=== PATIENT | male | born 1970 | race Caucasian/White ===

== ENCOUNTER 2018-05-26 20:05 | Emergency (ER) | payer MEDICAID ==
--- NOTE | 2018-05-26 20:36 | ER Document Report ---
Addendum entered and electronically signed by POLLY CLEMENT NP 05/27/18 10:11: ED Medical Screen (RME) - General Chief Complaint: Low Back Pain Stated Complaint: FALL Time Seen by Provider: 05/26/18 20:30 Primary Care Provider: TAMY SWAIN MD [Primary Care Provider] - Follow up as needed Mode of Arrival: Medic TRAVEL OUTSIDE OF THE [place] IN LAST 30 DAYS: No - Related Data Allergies/Adverse Reactions: No Known Allergies Allergy (Verified 05/26/18 21:29) Original Note: ED Medical Screen (RME) - General Mode of Arrival: Medic Information source: Patient TRAVEL OUTSIDE OF THE [place] IN LAST 30 DAYS: No - General Chief Complaint: Low Back Pain Stated Complaint: FALL Time Seen by Provider: 05/26/18 20:30 Primary Care Provider: TAMY SWAIN MD [Primary Care Provider] - Follow up as needed Notes: pt presents to the ED via EMS for c/o low back pain after falling down 2 steps landing on his low back, coccyx area. He reports hx of several back surgeries, drop right foot, which he tripped over and fell. Denies urinary/bowel incontinence. reports no change in LOC, did not become dizzy, reports he tripped over his foot and fell. reports he does not usually take pain medications. (POLLY CLEMENT) - Related Data Allergies/Adverse Reactions: No Known Allergies Allergy (Verified 05/26/18 21:29) Past Medical History - Past Medical History Cardiac Medical History: Reports: Hx Hypercholesterolemia, Hx Hypertension Endocrine Medical History: Reports: Hx Diabetes Mellitus Type 1, Hx Diabetes Mellitus Type 2 Renal/ Medical History: Denies: Hx Peritoneal Dialysis Past Surgical History: Reports: Hx Orthopedic Surgery - Vital signs Vitals: Temp Pulse BP Pulse Ox 97.8 F 81 125/77 96 05/26/18 20:15 05/26/18 20:15 05/26/18 20:15 05/26/18 20:15 Course - Re-evaluation Re-evalutation: 05/27/18 01:33 Have reevaluated the patient twice. He does have some recurrent pain in his back but is improving significantly with the medicine he has been given here. Four-chamber time he tries to stand he has a sharp pain that goes down his back into his leg and is unable to stand. He tries actually very hard and does show good effort to stand but is unable to do so. He does have an implantable device in his back. He says he has had MRIs in the past with this in place and it is MRI compatible. I informed him we should probably get an MRI in the morning if he still unable to stand on reevaluation in the morning. Patient is agreeable to this. (NILE SIMONS) - Vital Signs Vital signs: Temp Pulse Resp BP Pulse Ox 97.8 F 81 125/77 96 05/26/18 20:15 05/26/18 20:15 05/26/18 20:15 05/26/18 20:15 Doctor's Discharge - Discharge Referrals: TAMY SWAIN MD [Primary Care Provider] - Follow up as needed
[2018-05-26] MEDS ORDERED: OXYCODONE-ACETAMINOPHEN 5-325 MG TABLET PO ONE (20:37)
--- NOTE | 2018-05-26 22:04 | RADIOLOGY REPORT (SQ) ---
EXAM DESCRIPTION: CT LUMBAR SPINE WITHOUT IV CONTRAST COMPLETED DATE/TME: 05/26/2018 20:37 CLINICAL HISTORY: 48 years, Male, fall, low back coccyx pain COMPARISON: None. TECHNIQUE: 457 Images stored on PACS. All CT scanners at this facility use dose modulation, iterative reconstruction, and/or weight based dosing when appropriate to reduce radiation dose to as low as reasonably achievable (ALARA). [facility]: Dose Right [facility]: CareDose [facility]: Dose Right [facility]: Teradose 4D [facility]: ScoreFeeder LIMITATIONS: None. FINDINGS: 5 lumbar type vertebral bodies for the purposes of this exam. Vertebral body height and alignment is preserved. No evidence for fracture or subluxation. The coccyx was not included entirely in the exam however as visualized the sacrococcygeal joint is preserved. Sacroiliac joints are preserved. Limited evaluation of extra spinal anatomic structures shows partial visualization of stimulating wires projecting posteriorly at the L1 level. Postsurgical changes at the L3-4 level with laminectomy defects. T12-L1, L1-L2 levels are unremarkable. At L2-L3, there is moderate facet arthropathy bilaterally with diffuse disc bulging. Mild central canal stenosis and mild to moderate neural foraminal narrowing bilaterally. At L3-4, there is post surgical change with superimposed facet arthropathy and osteophytic spurring. Minor diffuse disc bulging. Moderate neural foraminal narrowing bilaterally with moderate central canal stenosis. At L4-5, there is moderate bilateral facet arthropathy, greater on the right. There is minor osteophytic spurring and diffuse disc bulging. At least moderate central canal stenosis and moderate right neural foraminal narrowing. At L5-S1, there is minor facet arthropathy bilaterally. No CT evidence for central canal stenosis or neural foraminal compromise. IMPRESSION: No CT evidence for acute osseous abnormality. Multilevel degenerative change and postsurgical change, as above. Varying degrees of neural foraminal compromise and central canal stenosis. Please see above for detailed discussion of each level TECHNICAL DOCUMENTATION: Quality ID # [id number]: Final reports with documentation of one or more dose reduction techniques (e.g., Automated exposure control, adjustment of the mA and/or kV according to patient size, use of iterative reconstruction technique) copyright 2010 [employer]- All Rights Reserved
[2018-05-26] MEDS ORDERED: HYDROMORPHONE HCL INJ/PF 2 MG/ML AMPULE IM ONE ×2 (22:16→23:50)
[2018-05-26] MEDS ORDERED: GABAPENTIN 300 MG CAPSULE PO ONE (23:50)
--- NOTE | 2018-05-27 06:27 | ER Document Report ---
ED General - General Mode of Arrival: Medic TRAVEL OUTSIDE OF THE [place] IN LAST 30 DAYS: No - General Chief Complaint: Low Back Pain Stated Complaint: FALL Time Seen by Provider: 05/26/18 20:30 Primary Care Provider: TAMY SWAIN MD [Primary Care Provider] - Follow up as needed Notes: Patient is a 48-year-old male with a history of previous back surgery who presents with complaint of pain in his lower back. Patient says that he has chronic back pain. He says usually takes gabapentin for nerve pain into his legs and takes ibuprofen and Tylenol for his back pain. He does have history of back surgery and also has a TENS unit in his back. He says that his surgery was in 2012. He says his TENS unit was placed around 2006. Denies any fevers. He said today he slipped down steps and landed onto his back. He says since then he has had severe pain in his back and has been unable to stand on his own. He does have chronic foot drop in the right leg which is unchanged. No weakness or numbness into the left leg however he says when he tries to stand he is unable to bear any weight and immediately has to sit back down. No loss of bowel control. No urinary retention. (NILE SIMONS) - Related Data Allergies/Adverse Reactions: No Known Allergies Allergy (Verified 05/26/18 21:29) Past Medical History - General Information source: Patient - Social History Smoking Status: Current Every Day Smoker Frequency of alcohol use: None Drug Abuse: None Family History: None, Reviewed & Not Pertinent Patient has suicidal ideation: No Patient has homicidal ideation: No - Past Medical History Cardiac Medical History: Reports: Hx Hypercholesterolemia, Hx Hypertension Endocrine Medical History: Reports: Hx Diabetes Mellitus Type 1, Hx Diabetes Mellitus Type 2 Renal/ Medical History: Denies: Hx Peritoneal Dialysis Past Surgical History: Reports: Hx Orthopedic Surgery Review of Systems - Review of Systems Notes: My Normal Review Basic REVIEW OF SYSTEMS: CONSTITUTIONAL : Denies fever, chills, or sweats. Denies recent illness. EENT: Denies eye, ear, throat, or mouth pain or symptoms. Denies nasal or sinus congestion. GASTROINTESTINAL: Denies abdominal pain. Denies nausea, vomiting, or diarrhea. Denies constipation. Last BM: GENITOURINARY: Denies difficulty urinating, painful urination, burning, frequency, or blood in urine. MUSCULOSKELETAL: Back pain SKIN: Denies rash or skin lesions. NEUROLOGICAL: Denies any new sensory or motor loss. ALL OTHER SYSTEMS REVIEWED AND NEGATIVE. (NILE SIMONS) Physical Exam - Vital signs Vitals: Temp Pulse BP Pulse Ox 97.8 F 81 125/77 96 05/26/18 20:15 05/26/18 20:15 05/26/18 20:15 05/26/18 20:15 - Notes Notes: General Appearance: Well nourished, alert, cooperative, no acute distress, no obvious discomfort. Vitals: reviewed, See vital signs table. Eyes: PERRL, EOMI, Conjuctiva clear Mouth: No decreasd moisture Abdomen: Normal BS, soft, No rigidity, No abdominal tenderness, No guarding, no rebound, no abdominal masses, no organomegaly Extremities: Patient has pain to palpation it is near the lumbosacral junction. He has significant pain with movement. She is unable to stand up and bear weight on his feet. When I try to help him stand he merely sits back down because as soon as he puts weight onto his legs he has severe pain into his back and is unable to hold himself up. He does not have any weakness or numbness into the leg. He has chronic foot drop in the right leg. Skin: warm, dry, appropriate color, no rash Neuro: speech clear, oriented x 3, normal affect, responds appropriately to questions. (NILE SIMONS) Course - Re-evaluation Re-evalutation: 05/27/18 06:25 am I have evaluated the patient multiple times tonight. Each time I try to get him to stand but he is unable to stand is every time he tries to bear weight he imme diately has pain shooting into his back and down his legs his legs give out and he is unable to bear any weight whatsoever. Due to this I do not feel the patient can go home at this time. I have arranged for an MRI this morning. He has no other signs of cauda equina syndrome and that he does not have loss of bowel control, urinary tension, no new weakness or numbness into the lower extremities. Patient does have what he says is a TENS unit his back. He says that he has had MRIs since this was placed. There is no other metal in his back. I have checked the patient out to Dr. Lozoya. He will wait for the results of the MRI and based on the MRI will determine whether not the patient to be admitted here has to be transferred. Dictation of this chart was performed using voice recognition software; therefore, there may be some unintended grammatical errors. (NILE SIMONS) 05/27/18 09:49 Patient was signed out to myself. Notify the MRI techs earlier this morning that they would be unable to perform the MRI is that the patient has no information about his TENS unit in his back. I discussed this with the patient. I did evaluate the patient patient has deep tendon reflexes preserved in the knee. No numbness no tingling sensation intact in the perineal region. Patient underwent a rectal examination with good rectal tone. No urinary retention no b owel or bladder incontinence. I explained to the patient we could offer possible admission here to the hospital for more likely hospitalist may require an MRI and if at that time the patient will need to be transferred for MRI at another facility. I explained to the patient the next closest facility would be in [place] that has neurosurgery availability. Patient stated that he did not want to be transferred and at this time would request to obtain a walker and states that he will go home. I will discharge the patient home with oral morphine for the next 5 days. Encouraged patient to follow-up with primary care physician. Patient states understanding of the limitations of his care here is that we did not obtain the MRI. (ASPEN LOZOYA) - Vital Signs Vital signs: Temp Pulse Resp BP Pulse Ox 97.4 F 70 18 113/68 98 05/27/18 09:12 05/27/18 09:12 05/27/18 09:12 05/27/18 09:12 05/27/18 09:12 - Laboratory Laboratory results interpreted by me: 05/27/18 02:49 POC Glucose 140 H Discharge - Discharge Clinical Impression: Back pain Qualifiers: Back pain location: low back pain Chronicity: unspecified Back pain laterality: midline Sciatica presence: with sciatica Sciatica laterality: sciatica of left side Qualified Code(s): M54.42 - Lumbago with sciatica, left side Instructions: Low Back Pain ([facility]), Warm Packs ([facility]), Oral Narcotic Medication ([facility]) Additional Instructions: We are unable to perform an MRI of her back today. I will send you home with a walker and pain medication. I will highly recommend to follow-up with your primary care physician take pain medications as prescribed along with anti- inflammatory medications and Tylenol. Return to the ER symptoms worsen. Prescriptions: Morphine Sulfate [Morphine Ir 15 Mg Tablet] 15 mg PO TID #16 tablet Referrals: TAMY SWAIN MD [Primary Care Provider] - Follow up as needed
[2018-05-27 09:13] VITALS: BP 113/68
[2018-05-27] MEDS ORDERED: MORPHINE SULFATE IR 15 MG TABLET PO ONE (09:42)
== END 2018-05-27 10:26 | disposition home or self-care (01) ==
LOC: ER 20:05
DX: M54.42 Lumbago with sciatica, left side (principal); G89.29 Other chronic pain; Z79.1 Long term (current) use of non-steroidal anti-inflammatories (NSAID); Z96.89 Presence of other specified functional implants; M21.371 Foot drop, right foot; R26.2 Difficulty in walking, not elsewhere classified; I10 Essential (primary) hypertension; E11.9 Type 2 diabetes mellitus without complications
CPT/HCPCS: 99284; 96372; 82962; 72131; J3490; J1170 ×2

== ENCOUNTER 2018-10-10 04:27 | Emergency (ER) | payer MEDICAID ==
[2018-10-10] MEDS ORDERED: ONDANSETRON 4 MG TAB.RAPDIS PO ONE (08:51)
[2018-10-10] MEDS ORDERED: MORPHINE SULFATE 10 MG/ML INJ IM ONE (08:51)
--- NOTE | 2018-10-10 09:48 | ER Document Report ---
Entered by CAMMY PÉREZ SCRIBE 10/10/18 0851 Acting as scribe for:JULIAN SERRANO MD ED Neck/Back Problem - General Chief Complaint: Back Pain Stated Complaint: BACK PAIN Time Seen by Provider: 10/10/18 08:35 Primary Care Provider: GINI ESCOBAR PA-C [Primary Care Provider] - Follow up as needed Mode of Arrival: Ambulatory Information source: Patient Notes: 48-year-old male who presents to the emergency department today with complaints of back pain that began this morning at 0300. Patient states he was rolling over to get out of bed to go to the bathroom when his pain began. Patient states he "felt something pop" in his back. Patient has chronic back pain with previous lower back surgery. Patient states it is difficult to walk secondary to pain but he is able to ambulate. TRAVEL OUTSIDE OF THE [place] IN LAST 30 DAYS: No - Related Data Allergies/Adverse Reactions: No Known Allergies Allergy (Verified 05/26/18 21:29) Past Medical History - General Information source: Patient - Social History Smoking Status: Current Every Day Smoker Cigarette use (# per day): Yes Family History: None, Reviewed & Not Pertinent - Past Medical History Cardiac Medical History: Reports: Hx Hypercholesterolemia, Hx Hypertension Endocrine Medical History: Reports: Hx Diabetes Mellitus Type 2 Past Surgical History: Reports: Hx Orthopedic Surgery Review of Systems - Review of Systems Constitutional: No symptoms reported EENT: No symptoms reported Cardiovascular: No symptoms reported Respiratory: No symptoms reported Gastrointestinal: No symptoms reported Genitourinary: No symptoms reported Male Genitourinary: No symptoms reported Musculoskeletal: See HPI, Back pain Skin: No symptoms reported Hematologic/Lymphatic: No symptoms reported Neurological/Psychological: No symptoms reported -: Yes All other systems reviewed and negative Physical Exam - Vital signs Vitals: Temp Pulse Resp BP Pulse Ox 98.8 F 90 16 115/76 95 10/10/18 04:53 10/10/18 04:53 10/10/18 04:53 10/10/18 04:53 10/10/18 04:53 - Notes Notes: Physical Exam: General: Alert, appears well. HEENT: Normocephalic. Atraumatic. PERRLA. Extraocular movements intact. Orophar ynx clear. Neck: Supple. Respiratory: No respiratory distress. Abdominal: Normal Inspection. No distension. Extremities: Moves all four extremities. Back: Tenderness with palpation over the left paralumbar musculature superior to the iliac crest. Neurological: Normal cognition. AAOx4. Normal speech. Psychological: Normal affect. Normal Mood. Skin: Warm. Dry. Normal color. Course - Vital Signs Vital signs: Temp Pulse Resp BP Pulse Ox 98.8 F 90 16 115/76 95 10/10/18 04:53 10/10/18 04:53 10/10/18 04:53 10/10/18 04:53 10/10/18 04:53 Discharge - Discharge Clinical Impression: Lumbar back sprain Qualifiers: Encounter type: initial encounter Qualified Code(s): S33.5XXA - Sprain of ligaments of lumbar spine, initial encounter Condition: Stable Disposition: HOME, SELF-CARE Additional Instructions: Low Back Pain Three out of every four people will have an episode of disabling back pain during their lifetime. Most commonly the pain is due to straining of the muscles and ligaments in the low back. Usual treatment includes: (1) Rest on a firm surface. Avoid lying on your stomach. (2) Ice pack the painful area. After a few days, gentle heat may be used intermittently to relax the area, or ice packs can be continued. (3) Medication may be needed -- muscle relaxers and antiinflammatory medicines are commonly used. (4) As the back improves, exercises are prescribed to strengthen the back and abdominal muscles. Your doctor will advise you on the proper care for your back at each stage in your recovery. You may be better in a few days -- or healing may take several weeks. If new symptoms of a "herniated disc" (radiation of pain, numbness, or tingling down the back of the leg or weakness in the leg) occur, you should be re-examined. Further testing may be necessary. Take the Flexeril you have left over from previous back pain episode. Use ice packs to the painful area today. Continue your regular medications. Follow-up with your doctor this week if not improving. RETURN TO THE EMERGENCY ROOM IF ANY NEW OR WORSENING SYMPTOMS. Referrals: GINI ESCOBAR PA-C [Primary Care Provider] - Follow up as needed Jamesibsatish Attestation: 10/10/18 08:59 I personally performed the services described in the documentation, reviewed and edited the documentation which was dictated to the scribe in my presence, and it accurately records my words and actions. I personally performed the services described in the documentation, reviewed and edited the documentation which was dictated to the scribe in my presence, and it accurately records my words and actions.
[2018-10-10 11:32] VITALS: BP 133/94
== END 2018-10-10 11:40 | disposition home or self-care (01) ==
LOC: ER 04:27
DX: S33.5XXA Sprain of ligaments of lumbar spine, initial encounter (principal); M54.9 Dorsalgia, unspecified; G89.29 Other chronic pain; X50.1XXA Overexertion from prolonged static or awkward postures, initial encounter; F17.210 Nicotine dependence, cigarettes, uncomplicated; I10 Essential (primary) hypertension; E11.9 Type 2 diabetes mellitus without complications
CPT/HCPCS: 99283; 96374; S0119; J2270

== ENCOUNTER 2019-03-08 10:42 | Day surgery (SDC) | payer MEDICAID ==
[2019-02-28 10:13] LABS: HEMATOCRIT 51.3 % (37.9-51.0); HEMOGLOBIN 17.7 g/dL (13.5-17.0); MEAN CORPUSCULAR HEMOGLOBIN 30.8 pg (27.0-33.4); MEAN CORPUSCULAR HGB CONC 34.6 g/dL (32.0-36.0); MEAN CORPUSCULAR VOLUME 89 fl (80-97); PLATELET COUNT 187 10^3/uL (150-450); RED BLOOD COUNT 5.76 10^6/uL (4.35-5.55); WHITE BLOOD COUNT 10.7 10^3/uL (4.0-10.5)
[2019-02-28 10:15] LABS: APPEARANCE,URINE CLEAR; BILIRUBIN,URINE NEGATIVE (NEGATIVE); COLOR,URINE YELLOW; GLUCOSE, URINE NEGATIVE (NEGATIVE); KETONES,URINE NEGATIVE (NEGATIVE); LEUKOCYTE ESTERASE,URINE NEGATIVE (NEGATIVE); NITRITE,URINE NEGATIVE (NEGATIVE); PROTEIN,URINE NEGATIVE (NEGATIVE); URINE SPECIFIC GRAVITY 1.018; UROBILINOGEN,URINE NEGATIVE mg/dL (<2.0)
[2019-02-28 10:19] LABS: INTERNATIONAL RATION (INR) 1.06; PROTHROMBIN TIME 13.8 SEC (11.4-15.4)
--- NOTE | 2019-02-28 10:42 | RADIOLOGY REPORT (SQ) ---
EXAM DESCRIPTION: CHEST PA/LATERAL COMPLETED DATE/TIME: 02/28/2019 10:09 am REASON FOR STUDY: PRE-OP COMPARISON: 10/24/2015. EXAM PARAMETERS: NUMBER OF VIEWS: two views TECHNIQUE: Digital Frontal and Lateral radiographic views of the chest acquired. RADIATION DOSE: NA LIMITATIONS: none FINDINGS: LUNGS AND PLEURA: No opacities, masses or pneumothorax. No pleural effusion. MEDIASTINUM AND HILAR STRUCTURES: No masses or contour abnormalities. HEART AND VASCULAR STRUCTURES: Heart normal size. No evidence for failure. BONES: No acute findings. HARDWARE: Spinal stimulator electrodes. OTHER: No other significant finding. IMPRESSION: NO SIGNIFICANT RADIOGRAPHIC FINDING IN THE CHEST. TECHNICAL DOCUMENTATION: JOB ID: [id number] [employer]- All Rights Reserved Reading location - IP/workstation name: [email or web address]
--- NOTE | 2019-02-28 23:43 | EKG REPORT ---
SEVERITY:- NORMAL ECG - SINUS RHYTHM : Confirmed by: Ramírez Renee 28-Feb-2019 23:42:42
[~2019-03-08 10:42] MED LIST: CEFAZOLIN SODIUM 1 GM in DEXTROSE 5%-WATER 50 ML IV PRN; FENTANYL CITRATE INJ/PF 100 MCG/2 ML AMPUL ONE; MIDAZOLAM 2 MG/2 ML INJ ONE; PROPOFOL INJ 200 MG/20 ML VIAL IV ONE
[2019-03-08 11:53] LABS: POTASSIUM 4.4 mmol/L (3.6-5.0)
[2019-03-08] MEDS ORDERED: LIDOCAINE 1% INJ-PF (10 MG/ML) 30 ML SDV ONE (12:26)
[2019-03-08] MEDS ORDERED: SODIUM BICARBONATE 8.4% INJ 50 MEQ/50 ML DISP.SYRIN ONE (12:26)
[2019-03-08] MEDS ORDERED: MORPHINE SULFATE 10 MG/ML INJ IV PRN (12:58)
[2019-03-08] MEDS ORDERED: ONDANSETRON HCL INJ/PF 4 MG/2 ML SDV IV PRN (12:58)
[2019-03-08] MEDS ORDERED: FENTANYL CITRATE INJ/PF 100 MCG/2 ML AMPUL IV PRN ×3 (12:58)
[2019-03-08] MEDS ORDERED: DIPHENHYDRAMINE HCL 50 MG/ML VIAL IV PRN (12:58)
[2019-03-08] MEDS ORDERED: MEPERIDINE HCL/PF INJ 25 MG/1 ML DISP.SYRIN IV PRN (12:58)
[2019-03-08] MEDS ORDERED: PROMETHAZINE HCL INJ 25 MG/1 ML VIAL IV PRN ×2 (12:58)
[2019-03-08] MEDS ORDERED: BUPIVACAINE HCL 0.5 % INJ/PF 30 ML SDV ONE (13:03)
[2019-03-08] MEDS ORDERED: EPINEPHRINE INJ/PF 1 MG/1 ML AMPULE ONE (13:03)
--- NOTE | 2019-03-08 14:06 | Operative Report ---
Operative Report DATE OF SURGERY: 03/08/19 PREOPERATIVE DIAGNOSIS: end of life spinal cord stimulator pulse generator bowen medeiros POSTOPERATIVE DIAGNOSIS: Same OPERATION: Removal and replacement of spinal cord stimulator pulse generator and evaluation of lead system for integrity of fluoroscopy complex programming of spinal cord stimulator pulse generator SURGEON: SARIAH LOPES ANESTHESIA: LMAC TISSUE REMOVED OR ALTERED: none COMPLICATIONS: none ESTIMATED BLOOD LOSS: 5ml INTRAOPERATIVE FINDINGS: depleted battery PROCEDURE: Obtaining informed consent patient was taken to the operating room and placed comfortably in the prone position. Back anesthesia was administered the patient was then prepped and draped in usual fashion with chlorhexidine. Drying time was allowed prior to draping the battery and lead system was not evaluated on fluoroscopy to identify location of the leads and the relationship to the battery they were satisfactory decision was made to anesthetize skin with 1% lidocaine with bicarb when this was effective sharp dissection was performed down to the pulse generator care was taken not to interrupt or disturb the leads themselves the generator was readily identified and removed from the pocket without difficulty. Leads with disc connect disconnected from the pulse generator without difficulty to be noted that the heck notes were not secured at this time the remainder of the pocket was then anesthetized with 1% lidocaine with bicarb to allow an incision of this to expand the pocket slightly to facilitate easier placement of the new battery stasis was obtained with electrocautery as necessary. Leads were cleaned connector sites and inserted into the new pulse generator without difficulty. Appearances were satisfactory connectivity was satisfactory the hex nuts were secured pulse generator pocket was then copiously irrigated with Betadine containing irrigation solution. The pulse generator was then placed into the pocket with a labral link facing the skin lead remaining lead was coiled behind the pulse generator pocket capsule was closed with a running 2-0 Polysorb using an interlocking technique. The next layer was then closed with inverted vertical mattress sutures using 3-0 Polysorb the skin edges came nicely together the pocket was then instilled with quarter percent bupivacaine with epinephrine. Dermabond tape was then applied and Dermabond cement was applied. This was allowed to dry then alpha and sponge Tegaderm dressings were placed over this. Patient was then taken to the PACU for further postoperative care and monitoring.
--- NOTE | 2019-03-08 15:23 | RADIOLOGY REPORT (SQ) ---
EXAM DESCRIPTION: L SPINE 2 VIEWS; NO CHG FLUORO COMPLETED DATE/TIME: 03/08/2019 3:14 pm REASON FOR STUDY: SPINAL STIMULATOR BATTERY EXCHANGE ASST WITH FLUORO IN OR G89.4 CHRONIC PAIN SYND JESSENIA M96.1 POSTLAMINECTOMY SYNDROME, NOT ELSEWHERE CLASSIFIED M54.16 RADICULOPATHY, LUMBAR REGION COMPARISON: None. FLUOROSCOPY TIME: 0.2 minutes Spot images saved to PACS. TECHNIQUE: Intra-operative images acquired during surgical procedure to evaluate progress. NUMBER OF IMAGES: 6 LIMITATIONS: None. FINDINGS: Fluoroscopy was provided for intraoperative procedure. Please refer to the operative repo rt for further discussion. IMPRESSION: IMAGE(S) OBTAINED DURING PROCEDURE. COMMENT: Quality ID [id number]: Final reports for procedures using fluoroscopy that document radiation exp osure indices, or exposure time and number of fluorographic images (if radiation exposure indices are not available) Please consult full operative report of the attending physician for description of the procedure. TECHNICAL DOCUMENTATION: JOB ID: [id number] [employer]- All Rights Reserved Reading location - IP/workstation name: [email or web address]
--- NOTE | 2019-03-08 15:23 | RADIOLOGY REPORT (SQ) ---
EXAM DESCRIPTION: L SPINE 2 VIEWS; NO CHG FLUORO COMPLETED DATE/TIME: 03/08/2019 3:14 pm REASON FOR STUDY: SPINAL STIMULATOR BATTERY EXCHANGE ASST WITH FLUORO IN OR G89.4 CHRONIC PAIN SYND JESSENIA M96.1 POSTLAMINECTOMY SYNDROME, NOT ELSEWHERE CLASSIFIED M54.16 RADICULOPATHY, LUMBAR REGION COMPARISON: None. FLUOROSCOPY TIME: 0.2 minutes Spot images saved to PACS. TECHNIQUE: Intra-operative images acquired during surgical procedure to evaluate progress. NUMBER OF IMAGES: 6 LIMITATIONS: None. FINDINGS: Fluoroscopy was provided for intraoperative procedure. Please refer to the operative repo rt for further discussion. IMPRESSION: IMAGE(S) OBTAINED DURING PROCEDURE. COMMENT: Quality ID [id number]: Final reports for procedures using fluoroscopy that document radiation exp osure indices, or exposure time and number of fluorographic images (if radiation exposure indices are not available) Please consult full operative report of the attending physician for description of the procedure. TECHNICAL DOCUMENTATION: JOB ID: [id number] [employer]- All Rights Reserved Reading location - IP/workstation name: [email or web address]
[2019-03-08 17:25] VITALS: BP 139/100
== END 2019-03-08 16:00 | disposition home or self-care (01) ==
LOC: OROUT 10:42
PROVIDERS: ATTEND Pain Medicine Interventional Pain Medicine
DX: Z45.49 Encounter for adjustment and management of other implanted nervous system device (principal); G89.4 Chronic pain syndrome; M96.1 Postlaminectomy syndrome, not elsewhere classified; M54.16 Radiculopathy, lumbar region; M54.5 Low back pain; M51.36 Other intervertebral disc degeneration, lumbar region; M32.9 Systemic lupus erythematosus, unspecified; F17.210 Nicotine dependence, cigarettes, uncomplicated; I10 Essential (primary) hypertension; E78.5 Hyperlipidemia, unspecified; E11.9 Type 2 diabetes mellitus without complications; Z79.891 Long term (current) use of opiate analgesic; Z79.84 Long term (current) use of oral hypoglycemic drugs; Z79.4 Long term (current) use of insulin; Z79.01 Long term (current) use of anticoagulants; J45.909 Unspecified asthma, uncomplicated; Z79.51 Long term (current) use of inhaled steroids; Z86.718 Personal history of other venous thrombosis and embolism
CPT/HCPCS: 93005; 36415 ×2; 82947; 84132; 85027; 85610; 85730; 81001; 71046; 72100; 93010; 00300; 63685; C1767; J2250; J3490 ×3; J0690; J0171; J3010; J7060; J2704; 300

== ENCOUNTER 2019-03-09 06:59 | Emergency (ER) | payer MEDICAID ==
[2019-03-09 09:37] LABS: APPEARANCE,URINE CLEAR; BILIRUBIN,URINE NEGATIVE (NEGATIVE); COLOR,URINE YELLOW; GLUCOSE, URINE >=500 mg/dL (NEGATIVE); KETONES,URINE NEGATIVE (NEGATIVE); LEUKOCYTE ESTERASE,URINE NEGATIVE (NEGATIVE); NITRITE,URINE NEGATIVE (NEGATIVE); PROTEIN,URINE NEGATIVE (NEGATIVE); URINE SPECIFIC GRAVITY 1.025; UROBILINOGEN,URINE NEGATIVE mg/dL (<2.0)
[2019-03-09] MEDS ORDERED: HYDROMORPHONE HCL INJ/PF 2 MG/ML AMPULE IM ONE (10:16)
--- NOTE | 2019-03-09 10:17 | ER Document Report ---
HPI - HPI Patient complains to provider of: Low back pain Time Seen by Provider: 03/09/19 08:28 Onset: Yesterday Onset/Duration: Gradual, Worse Quality of pain: Sharp Pain Level: 5 Context: Patient presents complaining of lower back pain at the site of his surgical incision. Patient had surgery yesterday to remove and replace a spinal cord stimulator battery. Patient states that he was given pain medication at home although states that he took 2 tablets without any relief of his symptoms. Patient states he has been having difficulty in position changes but is able to get upright and move. Patient denies any radiculopathy. Patient denies any fever. Patient does report a history of chronic foot drop due to his back issues. Patient denies any new neurologic deficits. Patient states that he feels as though he is having incisional pain. Associated Symptoms: denies: Fever, Headache, Shortness of breath, Weakness Exacerbated by: Movement Relieved by: Denies Similar symptoms previously: Yes Recently seen / treated by doctor: Yes - ROS ROS below otherwise negative: Yes Systems Reviewed and Negative: Yes All other systems reviewed and negative - CONSTITUTIONAL Constitutional: DENIES: Fever, Chills - NEURO Neurology: DENIES: Weakness - GASTROINTESTINAL Gastrointestinal: DENIES: Nausea - MUSCULOSKELETAL Musculoskeletal: REPORTS: Back Pain - DERM Skin Color: Normal Skin Problems: None Past Medical History - General Information source: Patient - Social History Smoking Status: Current Every Day Smoker Frequency of alcohol use: None Drug Abuse: None Occupation: None Lives with: Family Family History: None, Reviewed & Not Pertinent Patient has suicidal ideation: No Patient has homicidal ideation: No - Past Medical History Cardiac Medical History: Reports: Hx Hypercholesterolemia, Hx Hypertension Pulmonary Medical History: Reports: Hx Asthma - MILD Endocrine Medical History: Reports: Hx Diabetes Mellitus Type 1, Hx Diabetes Mellitus Type 2 Renal/ Medical History: Denies: Hx Peritoneal Dialysis Musculoskeletal Medical History: Reports Hx Arthritis - LOWER BACK Past Surgical History: Reports: Hx Orthopedic Surgery, Hx Urinary Tract Surgery - Immunizations Hx Diphtheria, Pertussis, Tetanus Vaccination: Yes Vertical Provider Document - CONSTITUTIONAL Agree With Documented VS: Yes Exam Limitations: No Limitations General Appearance: WD/WN, No Apparent Distress Notes: PHYSICAL EXAMINATION: GENERAL: Well-appearing, well-nourished and in no acute distress. HEAD: Atraumatic, normocephalic. EYES: sclera clear, anicteric, conjunctiva are normal. ENT: nares patent, Moist mucous membranes. NECK: Normal range of motion, supple no lymphadenopathy LUNGS: respirations unlabored HEART: Regular rate and rhythm without murmurs EXTREMITIES: Normal range of motion, no pitting or edema. No cyanosis. Gait normal, pt ambulates without difficulty BACK: Right lumbar paraspinal tenderness where dressing is in place, no midline tenderness, no deformities or step-offs. No CVA tenderness. NEUROLOGICAL: Patient with right foot drop and muscle atrophy to right lower leg. Normal speech. No saddle anesthesia. PSYCH: Normal mood, normal affect. SKIN: Warm, Dry, normal turgor, no rashes or lesions noted. - INFECTION CONTROL TRAVEL OUTSIDE OF THE [place] IN LAST 30 DAYS: No Course - Re-evaluation Re-evalutation: 03/09/19 10:33 Consulted with patient's doctor, Dr. Lopes, who does not recommend any additional testing or treatments. States that if patient looks well advises having patient come directly to the office for a recheck in his office. 03/09/19 10:38 Patient otherwise looks well although does have tenderness at his surgical incision site. Patient is agreeable with discharge plan of care at this time. - Vital Signs Vital signs: Temp Pulse Resp BP Pulse Ox 97.8 F 94 18 121/73 100 03/09/19 07:04 03/09/19 07:04 03/09/19 07:04 03/09/19 07:04 03/09/19 07:04 - Laboratory Laboratory results interpreted by me: 03/09/19 09:10 Urine Glucose (UA) >=500 H Discharge - Discharge Clinical Impression: post surgical pain, right lower back pain Condition: Stable Disposition: HOME, SELF-CARE Instructions: Low Back Pain ([facility]), Pain Medication Injection ([facility]) Additional Instructions: Return immediately for any new or worsening symptoms Followup with directly with Dr. Lopes in his office, he will see you this morning. Referrals: GINI ESCOBAR PA-C [Primary Care Provider] - Follow up as needed SARIAH LOPES MD [ACTIVE STAFF] - 03/09/19 11:00 am
[2019-03-09 11:03] VITALS: BP 146/93
== END 2019-03-09 11:03 | disposition home or self-care (01) ==
LOC: ER 06:59
DX: G89.18 Other acute postprocedural pain (principal); M54.5 Low back pain; I10 Essential (primary) hypertension; J45.909 Unspecified asthma, uncomplicated; E11.9 Type 2 diabetes mellitus without complications; F17.200 Nicotine dependence, unspecified, uncomplicated
CPT/HCPCS: 99283; 96372; 81001; J1170